=== PATIENT | female | born 1970 | race Caucasian/White ===

== ENCOUNTER 2023-03-04 09:25 | Emergency (ER) | payer OTHER, SELFPAY ==
[2023-03-04 09:35] VITALS: BP 138/80; PULSE 77; RESP 20; TEMP 37; O2SAT 95; BMI 39.4
--- NOTE | 2023-03-04 10:07 | EXP.UTC ---
Discharge Plan Disposition Patient Disposition: Home, Self-Care Condition: Good Prescriptions Prescriptions: No Action levothyroxine 125 mcg capsule 125 mcg PO DAILY rosuvastatin 20 mg tablet 20 mg PO DAILY metoprolol succinate 25 mg tablet extended release 24 hr 37.5 mg PO DAILY Referrals Follow up/Referrals: Kamaljit Wiggins DO [Staff Physician] - 03/05/23 11:15 am Rosamaria Mcmullen APRN [Primary Care Provider] - See instructions Activity Restrictions/Add. Instructions Additional Instructions/Restrictions: Soak area in warm water and epson salt to help clean the area Follow up tomorrow with Dr Wiggins as scheduled 11am Clinical Impressions Clinical Impression: Foreign body in forearm Qualifiers: Encounter type: initial encounter Laterality: left Qualified Code(s): S50.852A - Superficial foreign body of left forearm, initial encounter Stand Alone Forms Stand Alone Forms: Work/School Release Discharge ED Provider: Viki Jasso [facility] [place] General Stated complaint: WC 6/15, possible splinter in Lt arm Mode of Arrival: Ambulatory Source of Information: Patient Limitations: No Limitations Time Seen by Provider: 03/04/23 10:07 Description of Symptoms (Recalled from Triage Doc. by RN): PATIENT C/O SPLINTER TO LEFT FOREARM SINCE SATURDAY. SHE STATES SHE GOT THE SPLINTER AT WORK WHILE MOVING A WOODEN PALLETT HEENT Symptoms (Recalled from RN notes): No Resp Symptoms (Recalled from RN notes): No Skin Symptoms (Recalled from RN notes): Yes MS Symptoms (Recalled from RN notes): No Functional Status (Recalled from RN notes): WNL History of Present Illness Provider Complaint: Patient states that she has a splinter in her left fore arm since last from a pallet States that she felt it go in but has been unable to get it out States that she has tried several times Related Data Home Medications Medication Instructions Recorded Confirmed levothyroxine 125 mcg capsule 125 mcg PO DAILY Supplement 04/24/18 03/04/23 rosuvastatin 20 mg tablet 20 mg PO DAILY Cholesterol 04/24/18 03/04/23 metoprolol succinate 25 mg 37.5 mg PO DAILY Hypertension 03/04/23 03/04/23 tablet,extended release 24 hr Allergies Allergy/AdvReac Type Severity Reaction Status Date / Time codeine Allergy Verified 03/04/23 09:47 Worker's Comp Is this a Worker's Comp case?: No [facility] Disclaimer: The information contained in this section may have been updated after the patient was seen, as this information can be updated by other users. Medical History (Updated 03/04/23 @ 11:08 by Viki Jasso APRN) Anxiety Depression Hyperlipidemia Hypertension Migraine Thyroid disease Urinary tract infection Surgical History (Updated 03/04/23 @ 09:50 by Kasey Simmons RN) History of appendectomy History of cholecystectomy History of hysterectomy History of tubal ligation Social History Smoking Status: Never smoker alcohol intake: never current occupational status: employed Travel in the last 8 weeks: None ROS Obtained: Yes All systems reviewed & no additional complaints except as documented and Yes Systems reviewed as appropriate & no additional complaints except as documented ENT Ears, Nose, Mouth, and Throat: Reports system reviewed and no additional complaints, except as documented and Reports as per HPI Cardiovascular Cardiovascular: Reports system reviewed and no additional complaints, except as documented and Reports as per HPI Respiratory Respiratory: Reports system reviewed and no additional complaints, except as documented and Reports as per HPI Integumentary/Breasts Skin/Breast: Reports system reviewed and no additional complaints, except as documented and Reports as per HPI Comments: splinter in right forearm since last Physical Exam General General appearance: alert and in no apparent distress Respiratory Respiratory exam: Present normal lung sounds bilaterally; Absent respi
--- NOTE | 2023-03-04 10:56 | XR_ITS ---
FINAL REPORT CLINICAL HISTORY: SPLINTER IN LEFT FOREARM COMPARISON: None FINDINGS: 2 views of the left forearm were obtained. There is no acute fracture or dislocation. The joints are intact. There are no soft tissue abnormalities. No radiopaque foreign body identified. IMPRESSION: No acute process. No radiopaque foreign body. Reviewed, Interpreted and Dictated by Samm Cortez MD Transcribed by Dora Back Authenticated and [facility]
[2023-03-04 11:21] VITALS: BP 138/80; PULSE 77; RESP 20; TEMP 37; O2SAT 95
== END 2023-03-04 11:22 | disposition home or self-care (01) ==
PROVIDERS: Emergency Provider Nurse Practitioner; PCP Nurse Practitioner Family
DX: S50.852A Superficial foreign body of left forearm, initial encounter (principal); I10 Essential (primary) hypertension; E78.5 Hyperlipidemia, unspecified; E03.9 Hypothyroidism, unspecified; F41.9 Anxiety disorder, unspecified; F32.A Depression, unspecified; W45.8XXA Other foreign body or object entering through skin, initial encounter
CPT/HCPCS: 73090; 99204; 99212; G0463

== ENCOUNTER 2023-03-11 11:02 | Day surgery (SDC) | payer OTHER, SELFPAY ==
[2023-03-07 10:14] VITALS: BMI 40.6
[2023-03-11 11:48] VITALS: BP 140/77; PULSE 86; RESP 18; TEMP 36.1; O2SAT 97
[2023-03-11 14:44] VITALS: BP 128/83; PULSE 65; RESP 17; TEMP 36.1; O2SAT 98
[2023-03-11 14:55] VITALS: BP 128/83; PULSE 65; RESP 17; TEMP 36.1; O2SAT 98
--- NOTE | 2023-03-11 15:18 | EXP.OP.NOTE ---
Date of procedure: 03/11/23 Pre-op Diagnosis:: Foreign body left forearm Post-op Diagnosis:: Same Procedure performed:: Removal foreign body left forearm Surgeon:: Kamaljit Wiggins DO Anesthesia: local Estimated blood loss (mL): 5 Operative findings:: See dictation Operative note:: Patient identified preoperatively. Left forearm was marked with yes my initials. Then taken to the procedure room. Left forearm was prepped and draped sterile fashion. Once prepped and draped final operative timeout performed to identify proper patient procedure and extremity. Everyone involved the case agreed. No counter occasion beginning. Local anesthesia was infiltrated with lidocaine with epinephrine over the area of foreign body entry into the left forearm on the volar aspect. After adequate anesthesia was confirmed skin knife was used to make incision in this area. Careful blunt dissection was taken down with the scissors and hemostat. There is no visual aspect of foreign body. There is lots of thick and fatty tissue in this area which was excised and removed. Irrigation of the wounds performed. Digital palpation of this area was performed to confirm removal of foreign body. There is no evidence of foreign body present with moving the fingers. Visualized down to the fascial layer. Copious irrigation of wound performed skin closed with nylon stitch sterile dressing placed. Patient taken to stepdown. Was awake throughout the procedure. Condition: stable Disposition: PACU Complications:: None apparent
== END 2023-03-11 14:55 | disposition home or self-care (01) ==
PROVIDERS: PCP Plastic Surgery; Visit Provider Orthopaedic Surgery
PROC: (CPT 10120; principal; 2023-03-11 12:15)
DX: S51.842A Puncture wound with foreign body of left forearm, initial encounter (principal); X58.XXXA Exposure to other specified factors, initial encounter
CPT/HCPCS: 10120

== ENCOUNTER 2025-05-11 16:20 | Outpatient (CLI) | payer BC, SELFPAY ==
[2025-05-11 18:20] LABS: Cholesterol 174 mg/dl (140-200); HDL Cholesterol 48 mg/dl (40-60); Triglycerides 124 mg/dl (30-150)
[2025-05-11 18:40] LABS: Free T4 (Free Thyroxine) 1.67 ng/dl (0.78-2.19)
[2025-05-11 18:52] LABS: Thyroid Stimulating Hormone 2.30 uIU/mL (0.465-4.68)
[2025-05-11 19:09] LABS: Hepatitis C Ab Qual. W/ RFX NEGATIVE (Negative)
--- OUTSIDE RECORDS SUMMARY | 2025-05-12 13:11 | XMS_ITS | Encounter Summary ---
Author Organization [employer] ([place], [place], [place], [place]) Address [address] [place] [address] Care Team Providers Care Final Assembler Name Role Phone Unavailable Primary Care Provider Unavailabl e Encounter Details Date Type Department Care Team (Late st Contact Info) Description 12/29/2020 Transcribed Document [facility] [place] Family Medicine [address] [place] [address] ProviderAnju MD [address], [place] [id number] Social History Tobacco Use Types Packs/Day Years Used Date Smoking Tobacco: Never Assessed Comments Unknown Sex and Gender Information Value Date Recorded Sex Assigned at Female 03/13/2022 8:50 PM CDT Legal Sex Female 8:50 PM CDT Gender Identity Female 03/13/2022 8:50 PM CDT Sexual Orientation Not on file documented as of this encounter Miscellaneous Notes * Cerner Conversion Note - Anju Bradshaw MD - 12/29/2020 10:04 AM CDT [place] [id number] RICCO KAHN :1970 Visit Time:12/29/2020 What to do next Your Diagnosis Other tear of medial meniscus, current injury, right knee, initial encounter, Other tear of medial meniscus, current injury, right knee, initial encounter Instructions From Your Care Team Discharge Follow Up Instructions: F/U in office in 7 to 10 days or call office Follow-Up Appointments Follow Up with IBETH ZHENG MD-ORT When 01/06/2021 10:15 AM EDT Where: [address] [facility] [address] [place] [address]- Medications What How Much When Instructions Next Dose levothyroxine (Synthroid 125 mcg (0.125 mg) oral tablet) 1 Tablet(s) Oral Every Day metoprolol (Metoprolol Tartrate 25 mg oral tablet) 0.5 Tablet(s) Oral Every Day rosuvastatin (rosuvastatin 10 mg oral tablet) 1 Tablet(s) Oral Every Day Take your medications faithfully. Do NOT skip medication. Do NOT stop taking medications without the direction of a physician. Carry a list of your medications with you at all times, and take this medication list with you to your first follow up visit. Report any side effects. Avoid herbal remedies unless discussed with your physician. As part of your treatment plan, your physician may have prescribed a limited course of a controlled substance. This medication may be given to help people with moderate or severe pain or for other medical conditions, but there are risks involved with treatment. Common side effects may include nausea, constipation, drowsiness, sweating, itching, dry mouth, and rash. More serious side effects may include cognitive and motor impairment, like problems with thinking, concentrating, alertness, and movement (e.g. slowed reflexes), and driving and operating heavy machinery can be dangerous. It is important for you to talk to your physician if you have these side effects or questions. These controlled substances can produce physical dependence and be habit-forming if taken for an extended period of time, which means that the body has gotten used to them and may experience withdrawal symptoms if they are abruptly stopped. Withdrawal symptoms can include runny nose, sweating, goose bumps, diarrhea, abdominal cramping, rapid heartbeat, difficulty sleeping, and nervousness. Please dispose of unused and medications per pharmacy guidance. Education Materials Knee Arthroscopy, Care After This sheet gives you information about how to care for yourself after your procedure. Your health care provider may also give you more specific instructions. If you have problems or questions, contact your health care provider. What can I expect after the procedure? After the procedure, it is common to have: ??? Soreness. ??? Swelling. ??? Pain that can be relieved by taking pain medicine. Follow these instructions at home: Incision care ??? Follow instructions from your health care provider about how to take care of your incisions. Make sure you: ? Wash your hands with soap and water before you change your bandage (dressing). If soap and water are not available, use hand equipment application specialist. ? Change your dressing as told by your health care provider. ? Leave stitches (sutures), ministerio, skin glue, or adhesive strips in place. These skin closures may need to stay in place for 2 weeks or longer. If adhesive strip edges start to loosen and curl up, you may trim the loose edges. Do not remove adhesive strips completely unless your health care provider tells you to do that. ??? Check your incision areas every day for signs of infection. Check for: ? Redness. ? More swelling or pain. ? Fluid or blood. ? Warmth. ? Pus or a bad smell. Bathing ??? Do not take baths, swim, or use a hot tub until your health care provider approves. Ask your health care provider if you may take showers. You may only be allowed to take sponge baths. Activity ??? Do not use your knee to support your body weight until your health care provider says that you can. Follow weight-bearing restrictions as told. Use crutches or other devices to help you move around (assistive devices) as directed. ??? Ask your health care provider what activities are safe for you during recovery, and what activities you need to avoid. ??? If physical therapy was prescribed, do exercises as directed. Doing exercises may help improve knee movement and flexibility (range of motion). ??? Do not lift anything that is heavier than 10 lb (4.5 kg), or the limit that you are told, until your health care provider says that it is safe. Driving ??? Do not drive until your health care provider approves. You may be able to drive after 1???3 weeks. ??? Do not drive or use heavy machinery while taking prescription pain medicine. Managing pain, stiffness, and swelling ??? If directed, put ice on the injured area: ? Put ice in a plastic bag or use the icing device (cold therapy unit) that you were given. Follow instructions from your health care provider about how to use the icing device. ? Place a towel between your skin and the bag or between your skin and the icing device. ? Leave the ice on for 20 minutes, 2???3 times a day. ??? Move your toes often to avoid stiffness and to lessen swelling. ??? Raise (elevate) the injured area above the level of your heart while you are sitting or lying down. If you are taking blood thinners: ??? Before you take any medicines that contain aspirin or NSAIDs, talk with your health care provider. These medicines increase your risk for dangerous bleeding. ??? Take your medicine exactly as told, at the same time every day. ??? Avoid activities that could cause injury or bruising, and follow instructions about how to prevent falls. ??? Wear a medical alert bracelet or carry a card that lists what medicines you take. General instructions ??? Take esbc-phy-bnwqmwz and prescription medicines only as told by your health care provider. ??? If you are taking prescription pain medicine, take actions to prevent or treat constipation. Your health care provider may recommend that you: ? Drink enough fluid to keep your urine pale yellow. ? Eat foods that are high in fiber, such as fresh fruits and vegetables, whole grains, and beans. ? Limit foods that are high in fat and processed sugars, such as fried or sweet foods. ? Take an mqgh-ucj-gaslpwm or prescription medicines for constipation. ??? Do not use any products that contain nicotine or tobacco, such as cigarettes and e-cigarettes. These can delay incision or bone healing. If you need help quitting, ask your health care provider. ??? Wear compression stockings as told by your health care provider. These stockings help to prevent blood clots and reduce swelling in your legs. ??? Keep all follow-up visits as told by your health care provider. This is important. Contact a health care provider if you: ??? Have a fever. ??? Have severe pain. ??? Have redness around an incision. ??? Have more swelling. ??? Have fluid or blood coming from an incision. ??? Notice that an incision feels warm to the touch. ??? Notice pus or a bad smell coming from an incision. ??? Notice that an incision opens up. ??? Develop a rash. Get help right away if you: ??? Have difficulty breathing. ??? Have shortness of breath. ??? Have chest pain. ??? Develop pain in your lower leg or at the back of your knee. ??? Have numbness or tingling in your lower leg or your foot. Summary ??? Raise (elevate) the injured area above the level of your heart while you are sitting or lying down. ??? To help relieve pain and swelling, put ice on your leg for 20 minutes at a time, 2???3 times a day. ??? If you were prescribed a blood thinner, avoid activities that could cause injury or bruising, and follow instructions about how to prevent falls. ??? If physical therapy was prescribed, do exercises as directed. Doing exercises may help improve range of motion. This information is not intended to replace advice given to you by your health care provider. Make sure you discuss any questions you have with your health care provider. Document Revised: 08/15/2018 Document Reviewed: 07/16/2018 [employer] Patient Education ?? 2020 [employer]. General Anesthesia, Adult, Care After This sheet gives you information about how to care for yourself after your procedure. Your health care provider may also give you more specific instructions. If you have problems or questions, contact your health care provider. What can I expect after the procedure? After the procedure, the following side effects are common: ??? Pain or discomfort at the IV site. ??? Nausea. ??? Vomiting. ??? Sore throat. ??? Trouble concentrating. ??? Feeling cold or chills. ??? Weak or tired. ??? Sleepiness and fatigue. ??? Soreness and body aches. These side effects can affect parts of the body that were not involved in surgery. Follow these instructions at home: For at least 24 hours after the procedure: ??? Have a responsible adult stay with you. It is important to have someone help care for you until you are awake and alert. ??? Rest as needed. ??? Do not: ? Participate in activities in which you could fall or become injured. ? Drive. ? Use heavy machinery. ? Drink alcohol. ? Take sleeping pills or medicines that cause drowsiness. ? Make important decisions or sign legal documents. ? Take care of children on your own. Eating and drinking ??? Follow any instructions from your health care provider about eating or drinking restrictions. ??? When you feel hungry, start by eating small amounts of foods that are soft and easy to digest (bland), such as toast. Gradually return to your regular diet. ??? Drink enough fluid to keep your urine pale yellow. ??? If you vomit, rehydrate by drinking water, juice, or clear broth. General instructions ??? If you have sleep apnea, surgery and certain medicines can increase your risk for breathing problems. Follow instructions from your health care provider about wearing your sleep device: ? Anytime you are sleeping, including during daytime naps. ? While taking prescription pain medicines, sleeping medicines, or medicines that make you drowsy. ??? Return to your normal activities as told by your health care provider. Ask your health care provider what activities are safe for you. ??? Take lrrq-tgy-duenmla and prescription medicines only as told by your health care provider. ??? If you smoke, do not smoke without supervision. ??? Keep all follow-up visits as told by your health care provider. This is important. Contact a health care provider if: ??? You have nausea or vomiting that does not get better with medicine. ??? You cannot eat or drink without vomiting. ??? You have pain that does not get better with medicine. ??? You are unable to pass urine. ??? You develop a skin rash. ??? You have a fever. ??? You have redness around your IV site that gets worse. Get help right away if: ??? You have difficulty breathing. ??? You have chest pain. ??? You have blood in your urine or stool, or you vomit blood. Summary ??? After the procedure, it is common to have a sore throat or nausea. It is also common to feel tired. ??? Have a responsible adult stay with you for the first 24 hours after general anesthesia. It is important to have someone help care for you until you are awake and alert. ??? When you feel hungry, start by eating small amounts of foods that are soft and easy to digest (bland), such as toast. Gradually return to your regular diet. ??? Drink enough fluid to keep your urine pale yellow. ??? Return to your normal activities as told by your health care provider. Ask your health care provider what activities are safe for you. This information is not intended to replace advice given to you by your health care provider. Make sure you discuss any questions you have with your health care provider. Document Revised: 09/05/2018 Document Reviewed: 04/18/2018 [employer] Patient Education ?? 2020 [employer]. Emergency Awareness and Preventative Care STROKE is an EMERGENCY Every Minute Counts Act FAST and Check for these signs: FACE Does the face look uneven? ARM Does one arm drift down? SPEECH Does their speech sound strange? TIME Call at any sign of stroke Stroke Risk Factors Atrial Fibrillation (irregular heartbeat) Diabetes Family history of stroke Heart Disease Heavy alcohol use High Blood Pressure High Cholesterol Physical inactivity and obesity Smoking Cigarette Smoking The facts are clear, cigarette smoking will shorten your life. Smoking can cause many illnesses along the way. As a healthcare provider, we recommend that you stop smoking. Assistance with quitting is available by contacting 7-783-CHIE-NOW. This is a free resource providing counseling, support, and referral. Or you may contact your personal physician. National Suicide Prevention Lifeline: The National Suicide Prevention Lifeline is a national network of local crisis centers that provides free and confidential emotional support to people in suicidal crisis or emotional distress 24 hours a day, 7 days a week. Don't Wait! Stop a Heart Attack Before it Starts What is a heart attack? A heart attack is damage or to a part of the heart from severely decreased or lack of blood flow to the heart. Over time, arteries can become narrow from the buildup of fat and cholesterol, which is called plaque. The plaque can rupture causing a blood clot to form. When the blood clot forms, the artery can become severely narrowed or completely blocked, causing a heart attack. Heart attack is the leading cause of in the [place]. 85% of muscle damage occurs within the first 2 hours. Delay in the recognition of heart attack symptoms increases the chances of . Know the early symptoms of a heart attack: Nausea Feeling of fullness in chest Jaw Pain Pain that travels down one or both arms Fatigue/being tired Anxiety Back Pain Chest pressure, squeezing, or discomfort Shortness of breath Sweating, or a cold sweat Feeling of impending doom There are unusual signs of a heart attack, too! Women, the elderly, and diabetics may present with atypical symptoms: Fainting/dizziness Weakness Confusion Risk Factors for a Heart Attack Some heart disease risk factors, such as age and family history, cannot be changed. Others, like smoking and lack of exercise, can be changed. Smoking High Cholesterol High Blood Pressure Family History Obesity Age Gender (Males are at higher risk) Lack of Exercise Diabetes Diet Stress Excessive Alcohol Intake If you or someone you know is experiencing the signs and symptoms of a heart attack, DON???T DELAY. Call immediately and seek help. If someone collapses, perform CPR! Do not attempt to drive if you are having symptoms of heart attack. Hands-Only CPR Why Hands-Only CPR? Hands-Only CPR has been shown to be as effective as conventional CPR for cardiac arrests that occur outside of a hospital. Survival depends on immediately receiving CPR from someone nearby. How do you perform Hands-Only CPR? There are two easy steps: Call if you see a teen or adult collapse Push hard and fast in the center of the chest at a beat of 100 beats per minute. Save a life! 4 WAYS TO GET AHEAD OF SEPSIS SEPSIS is a MEDICAL EMERGENCY. Time matters! Infections put you and your family at risk for a life-threatening condition called sepsis. Sepsis is the body's extreme response to an infection. It is life-threatening, and without timely treatment, sepsis can rapidly lead to tissue damage, organ failure, and . Sepsis happens when an infection you already have-in your skin, lungs, urinary tract or somewhere else-triggers a chain reaction throughout your body. 1 PREVENT INFECTIONS Take good care of chronic conditions. Talk to your doctor about getting the recommended vaccines. 2 PRACTICE GOOD HYGIENE Wash your hands frequently. Keep cuts or open sores clean and covered until they are healed. 3 KNOW THE SYMPTOMS Confusion or disorientation Shortness of breath High heart rate Fever, shivering, or feeling very cold Extreme pain or discomfort Clammy or sweaty skin 4 ACT FAST Get medical care IMMEDIATELY if you suspect sepsis or if you have an infection that is not getting better or is getting worse. To learn more about sepsis and how to prevent infections, visit www.cdc.gov/sepsis. Test Results Laboratory or Other Results This Visit (last charted value for your 12/29/2020 visit) General Chemistry 12/29/2020 5:40 AM Glucose POC2: 110 mg/dL -- Normal range between ( 70 and 110 ) Patient Name:RICCO KAHN I have received this information and was given the opportunity to ask questions. Patient/Auto Machinist Name: Patient/Auto Machinist Signature: Relationship to Patient: Clinician/Hospital Auto Machinist Signature: Date: documented in this encounter Plan of Treatment Not on file documented as of this encounter Visit Diagnoses Not on filedocumented in this encounter
--- OUTSIDE RECORDS SUMMARY | 2025-05-12 13:11 | XMS_ITS | Encounter Summary ---
Author Organization [employer] ([place], [place], [place], [place]) Address [address] [place] [address] Care Team Providers Care Psychiatric Secretary Name Role Phone Unavailable Primary Care Provider Unavailabl e Encounter Details Date Type Department Care Team (Late st Contact Info) Description 12/29/2020 Transcribed Document [facility] [place] [facility] [place] [address] 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 Postoperative Diagnosis: Same. Procedure Performed: Right knee examination under anesthesia, arthroscopy, medial meniscal debridement, tricompartment chondroplasty, medial plica excision. Surgeon: Zana Reece???Yousif Ervin EBL: Minimal. Complications: None. Anesthesia: General. Drains/Tubes: None Specimen Sent to Pathology: None Procedure: After appropriate timeout and preoperative marking, the patient was placed in a supine position under general anesthesia. The knee was examined. There was full ROM and all ligaments were stable. Portals were preinjected. The knee was then prepped and draped free in the usual manner. Portals were established inferolateral and inferomedial. In the medial compartment, we identified an extensive area of grade 4 chondromalacia damage. We performed a chondroplasty on this. There was a degenerative tear of the posterior horn of the medial meniscus. We performed a meniscectomy on this back to a good stable rim. The medial tibial plateau was intact. In the notch the ACL and PCL were intact to visualization and probing. In the lateral compartment we found an area of grade 4 chondromalacia damage. We performed a chondroplasty on this. The lateral meniscus was intact to visualization and probing. he popliteal tendon and hiatus were intact. The lateral tibial plateau had grade 4 chondromalacia and we performed chondroplasty back to a stable surface. In the patellofemoral joint there was normal alignment. The retropatellar surface had grade 4 chondromalacia of the medial, central and lateral facets. We performed a chondroplasty on this. The femoral trochlea was involved with grade 4 chondromalacia. Chondroplasty was performed back to a stable surface. The suprapatellar pouch and both gutters were clear. In the medial gutter we found a thickened large plica. It impinged in the patellofemoral articulation. There was underlying chondromalacia on the medial femoral condyle. It was felt that this was probably symptomatic. The plica was therefore excised. Chondroplasty was performed. The knee was then thoroughly irrigated with sterile saline. Instruments were withdrawn. The wounds were closed with nylon. They were appropriately dressed. The patient tolerated the procedure well and was taken to the Recovery Room in stable condition. Ehsan Murphy MD Electronically signed by Estela [facility] Conversion Numberer And Wirer Cerner at 01/01/2023 7:03 PM CDT documented in this encounter Plan of Treatment Not on file documented as of this encounter Visit Diagnoses Not on filedocumented in this encounter
--- OUTSIDE RECORDS SUMMARY | 2025-05-12 13:11 | XMS_ITS | Encounter Summary ---
Author Organization [employer] ([place], [place], [place], [place]) Address [address] [place] [address] Care Team Providers Care Engine Cowling Installer Name Role Phone Unavailable Primary Care Provider Unavailabl e Encounter Details Date Type Department Care Team (Late st Contact Info) Description 12/29/2020 Transcribed Document [facility] [place] [address] [place] [address] ProviderAnju MD [address] [place], [place] [id number] Social History Tobacco Use Types Packs/Day Years Used Date Smoking Tobacco: Never Assessed Comments Unknown Sex and Gender Information Value Date Recorded Sex Assigned at Female 03/13/2022 8:50 PM CDT Legal Sex Female 8:50 PM CDT Gender Identity Female 03/13/2022 8:50 PM CDT Sexual Orientation Not on file documented as of this encounter Miscellaneous Notes * Cerner Conversion Note - Anju ProviderMD - 12/29/2020 6:56 AM CDT PAT Adult Entered On: 12/29/2020 7:01 EDT Performed On: 12/29/2020 6:56 EDT by JUSTYNA BARONE, RN Vital Measurements Temperature Source : Temporal artery scanning Temperature Mode : Fahrenheit Temperature, Fahrenheit : 97.8 Deg F Clinical Temperature, C : 36.6 Deg C Pulse Method : Non-Invasive BP Device Peripheral Pulse Rate : 69 bpm Respiratory Rate : 16 Breaths/Min Blood Pressure Location : Arm, left upper Blood Pressure Source : Non-Invasive BP Device Blood Pressure Position : Sitting Systolic Blood Pressure : 117 mmHg Diastolic Blood Pressure : 66 mmHg Oxygen Saturation : 97 % Oxygen Therapy Mode : Room air JUSTYNA BARONE RN - 12/29/2020 6:56 EDT Pain Assessment Pain Assessment : Initial assessment Pain Scale Goal : 3 Pain Scale Used : 0-10 Scale Location : Knee, right JUSTYNA BARONE RN - 12/29/2020 6:56 EDT Height and Weight, Clinical Dosing Height Source : Stated Height Entry Format : [place] Height, Feet : 5 ft(Converted to: 152 cm, 60 Inch) Height, Inches : 4 Inch(Converted to: 0 ft 4 Inch, 10.16 cm) Clinical Height : 162.56 cm Weight Source : Standing scale Weight Entry Format : [place] Clinical Dosing Weight : 112.73 kg Weight, Pounds : 248 lb Body Surface Area (BSA) : 2.15 m2 Body Mass Index : 42.7 kg/m2 (>HHI) [place] Body Weight : 54 kg JUSTYNA BARONE RN - 12/29/2020 6:56 EDT Health Histories Smoking Status : Former smoker, quit more than 30 days ago Smokeless Tobacco Status : Never JUSTYNA BARONE RN - 12/29/2020 6:56 EDT Social History (As Of: 12/29/2020 07:01:33 EDT) Alcohol: Alcohol Use History No. (Last Updated: 12/29/2020 06:58:10 EDT by JUSTYNA BARONE RN) Infectious Disease History Has the patient ever been tested for COVID-19? : Yes, Patient stated results Negative Where are the test results? : In EMR Results Date of COVID-19 test known? : Yes Date of COVID-19 Test : 12/27/2020 EDT Does patient have symptoms of COVID-19? : No COVID19 Screening : No Experiencing Infectious Disease Symptoms : No symptoms Physical contact outside [place] in the last 30 days : No Infectious Disease History : Chicken pox/Shingles Tuberculosis Symptoms : None JUSTYNA BARONE RN - 12/29/2020 6:56 EDT COVID19 PreProcedure Screening Is this an Emergent or Add on Procedure? : No Date PreProcedure COVID-19 test known? : Yes Date of PreProcedure COVID-19 : 12/27/2020 EDT Has patient been isolated since the test : No Exposed to COVID19 symptoms since test? : No JUSTYNA BARONE RN - 12/29/2020 6:56 EDT Anesthesia/Transfusion History Family History of Anesthesia Reaction : No prior transfusion(s) Transfusion History : Prior anesthesia without reaction Family History of Anesthesia Reaction : None JUSTYNA BARONE RN - 12/29/2020 6:56 EDT Functional Assessment Functional ADL Evaluation Index EBN Bathing : Independent (2) Dressing : Independent (2) Toileting : Independent (2) Transferring Bed or Chair : Independent (2) Continence : Independent (2) Feeding : Independent (2) JUSTYNA BARONE RN - 12/29/2020 6:56 EDT ADL Index Score : 12 JUSTYNA BARONE RN - 12/29/2020 6:56 EDT Advance Directive Patient has Advance Directive *Q : No, patient refuses Advance Directive information JUSTYNA BARONE RN - 12/29/2020 6:56 EDT Spiritual/Cultural Needs Any Spiritual/Cultural Needs or Requests : No JUSTYNA BARONE RN - 12/29/2020 6:56 EDT [place] Suicide Severity Rating Scale (C-SSRS) CSSRS Past Month Wish to be : No CSSRS Past Month Suicidal Thoughts : No CSSRS Lifetime Suicide Behavior : No Suicide Severity Rating Score : 0 Suicide Severity Rating : No Additional Care Required at this time JUSTYNA BARONE RN - 12/29/2020 6:56 EDT Psychosocial History Do You Have a History of the Following? : Anxiety Currently in Unsafe Situation : No JUSTYNA BARONE RN - 12/29/2020 6:56 EDT Teaching/Learning Assessment Barriers To Learning : None evident Individuals Taught : Patient JUSTYNA BARONE RN - 12/29/2020 6:56 EDT General Info Arrived From : Home Mode of Arrival on Unit : Ambulatory Legal Guardian : Unaccompanied Want Family/Rep/Phys Notified of Admit : No Emergency Contact #1 : Silvio Emergency Contact #1 Emergency Contact #1 Relationship : Emergency Contact #2 : . Emergency Contact #2 Phone Number : . Emergency Contact #2 Relationship : . Information Obtained From : Patient Primary Language : Persian Communication Barrier : None Staple Fiber Washer Needed : JUSTYNA Lepe RN - 12/29/2020 6:56 EDT Abhilash Scale Abhilash Sensory Perception : No impairment Abhilash Moisture : Rarely moist Abhilash Activity : Walks occasionally Abhilash Mobility : Slightly limited Abhilash Nutrition : Adequate Abhilash Friction and Shear : No apparent problem Abhilash Score : 20 JUSTYNA BARONE RN - 12/29/2020 6:56 EDT Sleep Apnea Risk Assmt BiPAP/CPAP Ordered for Home Use : Yes Hx of Obstructive Sleep Apnea Diagnosis : Yes BiPAP/CPAP Used at Home : No Reason BiPAP/CPAP Not Used at Home : need fitting/testing Age over 50 Years Old : Yes Gender Male : No JUSTYNA BARONE RN - 12/29/2020 6:56 EDT Pain Scale Intensity : 7 JUSTYNA BARONE RN - 12/29/2020 6:56 EDT Image 4 - Images currently included in the form version of this document have not been included in the text rendition version of the form. documented in this encounter Plan of Treatment Not on file documented as of this encounter Visit Diagnoses Not on filedocumented in this encounter
--- OUTSIDE RECORDS SUMMARY | 2025-05-12 13:11 | XMS_ITS | Clinical Summary ---
[facility] Organization [facility] Address [address] [place] [address] Care Team Providers Care Director Of Casino Name Role Phone Yoselin Salcido DO Primary Care Provider + Family History Medical History Relation Name Comments Breast cancer Paternal Aunt Great Aunt 50+ Relation Name Status Comments Paternal Aunt Great Aunt Alive Social History Tobacco Use Types Packs/Day Years Used Date Smoking Tobacco: Never Assessed Comments No Sex and Gender Information Value Date Recorded Sex Assigned at Not on file Legal Sex Female 3:53 PM EDT Gender Identity Not on file Sexual Orientation Not on file Plan of Treatment Health Maintenance Due Date Last Done Comments ANNUAL PHYSICAL 1970 Annual Gynecologic Pelvic an d Breast Exam 1970 HEPATITIS C SCREENING 1970 COLON CANCER SCREENING 5 YEA R SIGMOIDOSCOPY 2015 CT COLONOGRAPHY 2015 FECAL OCCULT BLOOD TEST 2015 FIT Testing (1 year) 2015 Pneumococcal Vaccine 50+ (1 of 1 - PCV) 2020 COVID-19 Vaccine (2023-2 5 season) 2024 02/15/2021, 01/18/2021 INFLUENZA VACCINE 06/16/2025 06/17/2024, , 07/08/2020, Additional history exists COLOGUARD 11/29/2025 11/29/2022 MAMMOGRAM 10/06/2026 10/06/2024, 09/18, 09/13/2023, Additional history exists COLONOSCOPY 11/29/2032 11/29/2022 COLORECTAL CANCER SCREENING 11/29/2032 TDAP/TD VACCINES (3 - Td or Tdap) 02/23/2034 024, 08/05/2020 ZOSTER VACCINE Completed 05/24/2023, 11/20/2022 Procedures Procedure Name Priority Date/Time Associated Diagnosis Comments MAMMO SCREENING DIGITAL TOMOSYNTHESIS BILATERAL W CAD Routine 10/06/2024 9:46 AM EST Encounter for screening mammogram for malignant neoplasm of breast from Last 3 Months or Most Recently Relevant to Health Maintenance Results * Mammo Screening Digital Tomosynthesis Bilateral With CAD (10/06/2024 9:46 AM EST) Anatomical Region Laterality Modality Breast N/A Mammography 10/10/2024 10:5 7 AM EST Impressions 10/10/2024 11:00 AM EST No mammographic findings suspicious for malignancy. RECOMMENDATION: Continue annual screening mammography. BI-RADS CATEGORY 1, NEGATIVE. CAD was utilized. The standard false-negative rate of mammography is between 10% and 25%. Complex patterns or increased breast density will markedly elevate the false-negative rate of mammography. A letter, in lay terminology, with the results of this exam will be mailed to the patient. This report was finalized on 10/10/2024 11:[address] Esther Umanzor MD. Narrative 10/10/2024 11:00 AM EST BILATERAL SCREENING MAMMOGRAM WITH TOMOSYNTHESIS: HISTORY: The patient has no personal history or significant family history of breast cancer and no focal breast complaints at the time of screening mammography. She has gained 14 pounds since her prior mammogram. TECHNIQUE: Bilateral CC and MLO low dose, full field digital mammographic images were obtained with tomosynthesis. COMPARISON: 10/15/2023, 09/13/2023, 2022, 07/31/2021, 07/22/2020, 06/08/2019, 04/28/2019, and 03/31/2018 FINDINGS: The breast tissue is heterogeneously dense, which may obscure small masses. The fibroglandular pattern is stable. There are no suspicious masses, worrisome calcifications, nonsurgical areas of architectural distortion, or other secondary signs of malignancy. Patricia Coronado DO IMG MAMMOGRAPHY ORDERA BLES Final Result from Last 3 Months or Most Recently Relevant to Health Maintenance Insurance [facility] PPO Member Subscriber Plan / Payer (Ef fective 2018-Present) Name:Viki Heath Steve Relation to Subscriber:Self Name:Viki Heath Payer ID:[id number] (NAIC) Type:Not on file Address: [facility] [id number] [place] [id number] Care Teams Director Of Casino Relationship Specialty Start Date End Date Yoselin Salcido DO [address] [place] [id number] PCP - General Family Medicine 10/06/24
--- OUTSIDE RECORDS SUMMARY | 2025-05-12 13:11 | XMS_ITS | Encounter Summary ---
Author Organization [employer] ([place], [place], [place], [place]) Address [address] [place] [address] Care Team Providers Care High School Coordinator Name Role Phone Unavailable Primary Care Provider Unavailabl e Encounter Details Date Type Department Care Team (Late st Contact Info) Description 12/29/2020 Transcribed Document [facility] [place] [facility] [place] [address] ProviderAnju MD [address] [place] [address] Social History Tobacco Use Types Packs/Day Years [...] Conversion Note - Anju ProviderMD - 12/29/2020 7:02 AM CDT Patient: RICCO SMALL Age: 50 years Sex: Female : 1970 Associated Diagnoses: None Author: ZANA ZHENG MD-ORT HISTORY AND PHYSICAL DATE: Patient: Ricco Heath Date of : 1970 Patient Number: [id number] History of Present Illness Ricco is here for her right knee. She has had gradually increasing pain. He then got much worse at [place] when she fell. She feels the pain on the medial side. It catches and pops. It has been having mechanical symptoms for about 10 years. She is given ibuprofen 600 which she takes up to 3 times a day and does seem to help much. She has not had knee injections. Current Medication ??? Ibuprofen 600 MG Oral Tablet take as directed 20 days, 0 refills ??? Liothyronine Sodium 5 MCG Oral Tablet take as directed 90 days, 0 refills ??? Lisinopril 2.5 MG Oral Tablet take as directed 90 days, 0 refills ??? Metoprolol Succinate ER 25 MG Oral Tablet Extended Release 24 Hour take as directed 90 days, 0 refills ??? Rosuvastatin Calcium 10 MG Oral Tablet take as directed 90 days, 0 refills ??? Rosuvastatin Calcium 20 MG Oral Tablet take as directed 90 days, 0 refills ??? SUMAtriptan Succinate 100 MG Oral Tablet take as directed 5 days, 0 refills ??? Synthroid 125 MCG Oral Tablet take as directed 90 days, 0 refills ??? Ubrelvy 50 MG Oral Tablet take as directed 30 days, 0 refills Past Medical/Surgical History Reported: Immunization History: Recent immunization for flu. No recent immunization for pneumococcal pneumonia. Diagnoses: Thyroid Disease. Diabetes mellitus. Arthritis Procedural: ??? History of Gallbladder Surgical: ??? Appendectomy ??? Hysterectomy ??? Back surgery Social History Not a current smoker. Current diet: No recent change in diet. Caffeine use: Caffeine use. Tobacco use: Non-smoker. Alcohol: Not using alcohol. Drug Use: Not using drugs. Habits: Exercising regularly. Allergies ??? No Known Allergies Family History Stroke / Seizures Diabetes mellitus Hypertension Rheumatoid arthritis Review Of Systems Systemic: Not feeling tired and no recent weight loss. Recent weight gain. Head: Headache. No sinus pain. Eyes: Vision problems. No Cataracts, no Glasses/Contacts, and no Glaucoma. Otolaryngeal: No hearing loss and no tinnitus. Cardiovascular: No chest pain or discomfort and no palpitations. Hypertension and High Cholesterol. Pulmonary: No daytime asthma symptoms and no chronic cough. No wheezing. Gastrointestinal: No heartburn and no abdominal pain. No Indigestion, no Acid Reflux, no Peptic Ulcer, no GI Stomach Bleed, and no Ulcers. Endocrine: Hot flashes. No muscle weakness, no Diabetes, no Hypothyroid, and no Hyperthyroid. Hematologic: No easy bleeding, no tendency for easy bruising, and no Anemia. Musculoskeletal: Arthritis and lower back pain. No soft tissue swelling. Pain localized to one or more joints. Neurological: Dizziness. No convulsions and no numbness. Psychological: Anxiety and emotional lability. No depression and no insomnia. Not crying for no reason. Skin: No dry skin. No Ulcers, no Scars, and no rash. Allergic and Immunologic: No complaint of seasonal allergic reaction. Physical Findings Height 64 in 48 - 78 Weight 245 lbs 98 - 183 Body Mass Index 42.1 kg/m2 Body Surface Area 2.13 m2 There is a right-sided antalgic gait. She has normal mood, affect and orientation. She has a well-groomed appearance. Heart and lung exam is deferred to anesthesia. Normal alignment. There is full extension and full flexion. Complete stability of the cruciate and collateral ligaments. No effusion. tenderness all along the medial joint line. No redness or heat. Skin is intact. Grossly normal motor and sensory function. Grossly normal vascular status. Tests MRI of the right knee shows a tear of the posterior horn medial meniscus. There is an effusion. Mild degenerative changes. Previous views of the right knee including a unicompartmental series are reviewed and shows no significant narrowing of the medial compartment which restores with a stress view and flexion lateral. Patellofemoral joint is intact as is the lateral compartment. Plan We explained to Ricco that she has had years of knee pain with a tender joint line and essentially normal radiographs are very little evidence of arthritis. MRI confirms medial meniscal tear. We explained to her the problem with the meniscal tear. We also discussed the presence of the arthritis. We discussed the likelihood that her knee would continue to hurt because of these 2 problems. There is a chance of helping the pain with an arthroscopy and medial meniscectomy. We would also proceed with intra-articular surgery such as chondroplasty and removal of loose body depending on the findings. Custom possibility of continuing to have pain following this and that future treatment would be based on findings at the time of arthroscopy. This may include more surgery. We also discussed risks which include but are not limited to bleeding, infection, swelling, blood clots and possible continuing pain. She understands. She wants to proceed. She is otherwise healthy good surgical candidate. We'll plan to do this under general anesthetic at the surgery center or hospital. She had no further questions. Zana Murphy MD documented in this encounter Plan of Treatment Not on file documented as of this encounter Visit Diagnoses Not on filedocumented in this encounter
--- OUTSIDE RECORDS SUMMARY | 2025-05-12 13:11 | XMS_ITS | Clinical Summary ---
Author Organization [employer] ([place], [place], [place], [place]) Address [address] [place] [address] Care Team Providers Care Ceo & Board Director Name Role Phone Unavailable Primary Care Provider Unavailabl e Social History Tobacco Use Types Packs/Day Years Used Date Smoking Tobacco: Never Assessed Comments Unknown Sex and Gender Information Value Date Recorded Sex Assigned at Female 03/13/2022 8:50 PM CDT Legal Sex Female 8:50 PM CDT Gender Identity Female 03/13/2022 8:50 PM CDT Sexual Orientation Not on file Plan of Treatment Not on file
--- OUTSIDE RECORDS SUMMARY | 2025-05-12 13:11 | XMS_ITS | Encounter Summary ---
Author Organization [employer] ([place], [place], [place], [place]) Address [address] [place] [address] Care Team Providers Care Forming And Assembling Supervisor Name Role Phone Unavailable Primary Care Provider Unavailabl e Encounter Details Date Type Department Care Team (Late st Contact Info) Description 12/29/2020 Transcribed Document [facility] [place] Family Medicine [address] [place] [address] ProviderAnju MD [address] [place], [place] [address] Social History Tobacco Use Types Packs/Day Years [...] Conversion Note - Anju ProviderMD - 12/29/2020 8:12 AM CDT [facility] Main OR PACU Summary Primary Physician: IBETH ZHENG MD-DOMINICK Finalized Date/Time: 12/29/20 09:34:07 Pt. Name: RICCO KAHN Steve /Sex: 1970 Female Med Rec #: [id number] Physician: IBETH ZHENG MD-DOMINICK Financial #: [id number] Pt. Type: O Room/Bed: [facility]/5 Admit/Disch: 12/29/20 05:10:00 - Institution: [facility] OR PACU Case Times Entry 1 In PACU I 12/29/20 08:47:00 Ready for PACU 12/29/20 09:27:00 Discharge Discharge from PACU 12/29/20 09:27:00 I Last Modified By: KRISTINA RODRIGUEZ 12/29/20 09:33:56 Finalized By: KRISTINA RODRIGUEZ Document Signatures Signed By: KRISTINA RODRIGUEZ 12/29/20 09:34 Electronically signed by [facility] Conversion Comic Artist Cerner at 01/01/2023 7:00 PM CDT documented in this encounter Plan of Treatment Not on file documented as of this encounter Visit Diagnoses Not on filedocumented in this encounter
--- OUTSIDE RECORDS SUMMARY | 2025-05-12 13:11 | XMS_ITS | Encounter Summary ---
Author Organization [employer] ([place], [place], [place], [place]) Address [address] [place] [address] Care Team Providers Care Engineering Director Name Role Phone Unavailable Primary Care Provider Unavailabl e Encounter Details Date Type Department Care Team (Late st Contact Info) Description 12/29/2020 Transcribed Document [facility] [place] Family Medicine [address] [place] [address] ProviderAnju MD [address] [place], [place] [address] Social History Tobacco Use Types Packs/Day Years [...] 12/29/2020 8:12 AM CDT [facility] Main OR PostOp Summary Primary Physician: IBETH ZHENG MD-DOMINICK Finalized Date/Time: 12/29/20 10:23:27 Pt. Name: RICCO KAHN Steve /Sex: 1970 Female Med Rec #: [id number] Physician: IBETH ZHENG MD-DOMINICK Financial #: [id number] Pt. Type: O Room/Bed: [facility]/5 Admit/Disch: 12/29/20 05:10:00 - Institution: [facility] [place] PostOp Case Times Entry 1 In PACU II 12/29/20 09:30:00 Ready for PACU II 12/29/20 10:15:00 Discharge Discharge from PACU 12/29/20 10:15:00 II Last Modified By: Cheryl Lassiter RN 12/29/20 10:23:17 Finalized By: Cheryl Lassiter RN Document Signatures Signed By: Cheryl Lassiter RN 12/29/20 10:23 Electronically signed by [facility] Conversion Aquatic Physiotherapist Cerner at 01/01/2023 7:00 PM CDT documented in this encounter Plan of Treatment Not on file documented as of this encounter Visit Diagnoses Not on filedocumented in this encounter
--- OUTSIDE RECORDS SUMMARY | 2025-05-12 13:11 | XMS_ITS | Encounter Summary ---
Author Organization [employer] ([place], [place], [place], [place]) Address [address] [place] [address] Care Team Providers Care Flight Engineer Name Role Phone Unavailable Primary Care Provider Unavailabl e Encounter Details Date Type Department Care Team (Late st Contact Info) Description 12/29/2020 Transcribed Document [facility] [place] Medicine [facility] [place] [address] ProviderAnju MD [address], [place] [address] Social History Tobacco Use Types Packs/Day Years [...] Note - Anju Bradshaw MD - 12/29/2020 9:56 AM CDT Patient Education Materials Follows: Knee Arthroscopy, Care After This sheet gives [...] and water are not available, use hand clinical informatics strategist. ? Change your dressing as told by [...] You may be able to drive after 1?3 weeks. ??? Do not drive or use [...] Leave the ice on for 20 minutes, 2?3 times a day. ??? Move your toes [...] medicines you take. General instructions ??? Take pdyy-cqs-evbdmnx and prescription medicines only as told by [...] fried or sweet foods. ? Take an hnas-kzw-gbkmsdb or prescription medicines for constipation. ??? Do [...] leg for 20 minutes at a time, 2?3 times a day. ??? If you were [...] provider. Document Revised: 08/15/2018 Document Reviewed: 07/16/2018 [employer] Patient Education ? 2020 [employer]ama. General Anesthesia, Adult, Care After This sheet [...] activities are safe for you. ??? Take mzzt-wgc-bcuqrwm and prescription medicines only as told by [...] provider. Document Revised: 09/05/2018 Document Reviewed: 04/18/2018 Elsevier Patient Education ? 2019 [employer] documented in this encounter Plan of Treatment Not on file documented as of this encounter Visit Diagnoses Not on filedocumented in this encounter
--- OUTSIDE RECORDS SUMMARY | 2025-05-12 13:11 | XMS_ITS | Encounter Summary ---
Author Organization [employer] ([place], [place], [place], [place]) Address [address] [place] [address] Care Team Providers Care Data Entry Analyst Name Role Phone Unavailable Primary Care Provider Unavailabl e Encounter Details Date Type Department Care Team (Late st Contact Info) Description 12/29/2020 Transcribed Document [facility] [place] Family Medicine [address] [place] [address] ProviderAnju MD [address], [place] [address] Social History Tobacco Use Types Packs/Day Years [...] 12/29/2020 8:12 AM CDT [facility] Main OR IntraOp Summary Primary Physician: IBETH ZHENG MD-ORT Finalized Date/Time: 12/29/20 08:50:21 Pt. Name: VIKI KAHN Steve /Sex: 1970 Female Med Rec #: [id number] Physician: IBETH ZHENG MD-ORT Financial #: [id number] Pt. Type: O Room/Bed: [facility]/ Admit/Disch: 12/29/20 05:10:00 - Institution: [facility] [place] IntraOp Case Attendance Entry 1 Entry 2 Entry 3 Case Attendee IBETH ZHENG MD-ORT DANIEL LOZANO, CARLOS RODRIGUEZ, RN JITTERBUG OPERATOR-ANS Role Performed Surgeon/Proceduralist, JITTERBUG OPERATOR/Nurse Tax Assistant Redipper, First First Time In 12/29/20 07:54:00 12/29/20 07:54:00 12/29/20 07:54:00 Time Out 12/29/20 08:48:00 12/29/20 08:48:00 12/29/20 08:48:00 Procedure Knee Arthroscopy Knee Arthroscopy Knee Arthroscopy Other Attendee Superficial Wound Closed By: Last Modified By: CARLOS RODRIGUEZ, RN CARLOS RODRIGUEZ, CARLOS QUISPE, JONY 12/29/20 08:46:26 12/29/20 08:46:26 12/29/20 08:46:26 Entry 4 Case Attendee Samson Mcnally, Pipe Testing Technician Role Performed Scrub, First Time In 12/29/20 07:54:00 Time Out 12/29/20 08:48:00 Procedure Knee Arthroscopy Other Attendee Superficial Wound Closed By: Last Modified By: CARLOS RODRIGUEZ, JONY 12/29/20 08:46:26 [facility] IntraOp Case Attendance Audit 12/29/20 08:46:26 Cover Seamer: [email or web address] Modifier: LONGGA 1 <+> Time In 1 <+> Time Out 1 <*> Procedure Knee Arthroscopy 2 <+> Time In 2 <+> Time Out 2 <*> Procedure Knee Arthroscopy 3 <+> Time In 3 <+> Time Out 3 <*> Procedure Knee Arthroscopy 4 <+> Time In 4 <+> Time Out 4 <*> Procedure Knee Arthroscopy 12/29/20 07:25:04 Cover Seamer: [email or web address] Modifier: LONGGA <+> 1 Procedure 2 <*> Procedure Knee Arthroscopy 3 <*> Procedure Knee Arthroscopy 4 <*> Procedure Knee Arthroscopy 12/29/20 07:21:30 Cover Seamer: LONGGA Modifier: LONGGA <+> 4 Case Attendee <+> 4 Role Performed <+> 4 Procedure [facility] IntraOp Case Times Entry 1 Patient In Room Time 12/29/20 07:54:00 Out Room Time 12/29/20 08:48:00 Anesthesia Start Time 12/29/20 07:54:00 Stop Time 12/29/20 08:48:00 Anesthesia Ready 12/29/20 07:54:00 Surgery / Procedure Times Start Time 12/29/20 08:12:00 Stop Time 12/29/20 08:42:00 Last Modified By: CARLOS RODRIGUEZ RN 12/29/20 08:46:25 [facility] IntraOp Case Times Audit 12/29/20 08:46:25 Cover Seamer: LONGGA Modifier: LONGGA <+> 1 Out Room Time <+> 1 Stop Time 12/29/20 08:44:26 Cover Seamer: LONGGA Modifier: LONGGA <+> 1 Stop Time 12/29/20 08:15:57 Cover Seamer: LONGGA Modifier: LONGGA <+> 1 Start Time [facility] IntraOp Communication Entry 1 Communication To Family/Significant other Comment PROCEDURE STARTING Communication By CARLOS RODRIGUEZ RN Date and Time 12/29/20 08:16:00 Last Modified By: CARLOS RODRIGUEZ RN 12/29/20 08:16:55 [facility] IntraOp Counts Verification Entry 1 Procedure Knee Arthroscopy Count Info Count Type Sponge, Sharps Counts Verification Baseline/pre-procedure Sequence Count Results Correct, surgeon notified Counts Performed By Count Performed By Samson Mcnally Scrub (Scrub) Tech Count Performed By CARLOS RODRIGUEZ RN (RN) Last Modified By: CARLOS RODRIGUEZ RN 12/29/20 07:23:56 [facility] IntraOp Counts Final Entry 1 Procedure Knee Arthroscopy Final Count Info Count Type Sponge, Sharps Counts Verification Skin Closure/end of Sequence procedure Count Results Correct, surgeon notified Counts Performed By Count Performed By Samson Mcnally Scrub (Scrub) Tech Count Performed By CARLOS RODRIGUEZ, RN (RN) Last Modified By: CARLOS RODRIGUEZ RN 12/29/20 08:19:11 [facility] IntraOp Delays Entry 1 Delay Reason Surgeon late - did not call Duration 24 Minute(s) Last Modified By: CARLOS RODRIGUEZ RN 12/29/20 08:17:41 [facility] IntraOp Delays Audit 12/29/20 08:17:41 Cover Seamer: LONGGA Modifier: LONGGA 1 <*> Duration 42 Minute(s) 12/29/20 08:16:38 Cover Seamer: LONGGA Modifier: LONGGA 1 <*> Duration 20 Minute(s) [facility] IntraOp Departure from OR Entry 1 Integumentary Assessment Integumentary WDL Assessment WDL Skin Description Dry (WDL with exeptions) Transfer/Handoff Transfer to PACU Phase I Handoff Method Bedside/Face to face Post-op Transport Stretcher/Gurney Via Patient Transport CARLOS RODRIGUEZ RN, Accompanied by DANIEL LOZANO CRNA-ANS Last Modified By: CARLOS RODRIGUEZ RN 12/29/20 08:23:45 [facility] IntraOp Dressing and Packing Entry 1 Type Dressing Location RIGHT KNEE Wound Dressing Item 4x4's, Yuniel, Webril Applied By IBETH ZHENG MD-ORT Last Modified By: CARLOS RODRIGUEZ RN 12/29/20 08:19:34 [facility] IntraOp Fire Risk Assessment Entry 1 Fire Info Surgical Site or 0- No Incision Above the Xyphoid Open O2 Source 0- No (Mask or Cannula) Available Ignition 1- Yes (ESU, Laser, Light Source) Fire Risk 1 Assessment Score Fire Score Fire Risk Yes Assessment Complete Fire Risk CARLOS RODRIGUEZ RN Assessment Verified By Fire Risk 12/29/20 07:24:00 Assessment Verified Date/Time Fire Risk High Risk Protocol Yes Implemented Standard Fire Yes Safety Precautions Followed Last Modified By: CARLOS RODRIGUEZ RN 12/29/20 07:24:03 [facility] IntraOp General Case Data Processing Mechanic 1 Case Information OR OR 05 S[facility] Case Level 1 Room Verified Yes Wound Class I - Clean Specialty Orthopedic Anesthesia Type General ASA Class 2 Diagnosis Preop Diagnosis MEDIAL MENISCAL TEAR, RIGHT KNEE Postop Same As Preop No Postop Diagnosis DICTATED BY Yousif Last Modified By: CARLOS RODRIGUEZ RN 12/29/20 08:18:55 [facility] IntraOp General Case Data Audit 12/29/20 08:18:55 Cover Seamer: MUNA Modifier: LONGGA <+> 1 ASA Class <+> 1 Anesthesia Type <+> 1 Postop Same As Preop <+> 1 Preop Diagnosis <+> 1 Postop Diagnosis <+> 1 Room Verified [facility] IntraOp Intraoperative Assessment Entry 1 Handoff Method Bedside/Face to face Valid History / Yes Physical in Chart Preoperative Yes Checklist Reviewed/Evaluated Allergies Reviewed Yes Patient is Latex No Sensitive Isolation Not applicable Precautions Noted Level of WDL Consciousness (WDL = Alert, Oriented to Person, Place, and Time) Skin Assessment Yes Verified Present Upon IVs Arrival to OR Last Modified By: CARLOS RODRIGUEZ RN 12/29/20 07:24:30 [facility] IntraOp Intraoperative Equipment Entry 1 Type Equipment Equipment Equipment Jax Suction System ID Number [id number] Setting HIGH Intraop Monitoring Electrocardiogram Three lead placement (ECG) Electrode Placement Blood Pressure Non-Invasive BP Device Source Antiembolic Devices Scopes Photo/Video Documentation Photo Yes Video Yes Intraop Equipment TOWER # Comment Last Modified By: CARLOS RODRIGUEZ RN 12/29/20 07:41:45 [facility] IntraOp Medication Admin Entry 1 Entry 2 Medication/Irrigant lidocaine 2% 20ml vial Marcaine 0.5% 30ml vial - [id number] - [id number] Combo Med List Time Administered Route of LOCAL LOCAL Administration Dose Dose 10 10 Unit of Measure ml Volume Administered By IBETH ZHENG MD-ORT IBETH ZHENG MD-ORT Procedure Irrigation Irrigant Volume In Irrigant Volume Out Last Modified By: CARLOS RODRIGUEZ RN LONGSWORTH, GARY, RN 12/29/20 07:42:27 12/29/20 07:42:27 [facility] IntraOp Patient Positioning Entry 1 Procedure Knee Arthroscopy Body Position Supine Left Arm Position Secured on padded arm board Right Arm Position Secured on padded arm board Left Leg Position Uncrossed, parallel Right Leg Position Held on field Feet Uncrossed Yes Pressure Points Yes Checked Positioning Devices Arm Board, Pillows, Safety Strap, Chest Device Position LATERAL POST AT THIGH ON RIGHT SIDE; DOES NOT DROP FOOT OF BED Positioned By CARLOS RODRIGUEZ RN, DANIEL LOZANO, EVER-ANS, IBETH ZHENG MD-ORT Position Verified Positioning Yes Verified by Anesthesia Positioning Yes Verified by Surgeon Last Modified By: CARLOS RODRIGUEZ RN 12/29/20 07:25:02 [facility] IntraOp Sign In Entry 1 Patient, Site, Yes Procedure Identified Surgical Consent Yes Confirmed Relevant Surgical Yes Documents Available Surgical Site Yes Marked by person performing procedure Anesthesia Machine Yes Check Completed Medication Checks Yes Completed Airway Hypothermia Risk No Warming Measures Yes Taken Last Modified By: CARLOS RODRIGUEZ RN 12/29/20 07:25:06 [facility] Intra Op Sign Out Entry 1 RN Confirmation Surgical Yes Procedure(s) Identified Instrument, Sponge Yes and Sharps Counts Correct/Documented Equipment Problems N/A Documented Specimen Labeled N/A Correctly Urinary Catheter N/A Documented in [employer]View [place] Patient Yes Recovery Concerns Reviewed with Anesthesia Provider, Surgeon and RN Safety Checklist Yes Elements Complete? RN Sign Out CARLOS RODRIGUEZ RN Signature RN Sign Out 12/29/20 08:44:00 Signature Date/Time Plan of Care Outcome - Fire Risk OUTCOME STATEMENT: Goal met Patient is free from injury related to surgical fire Plan of Care Outcome - Pt Positioning OUTCOME STATEMENT: Goal met Absence of signs and symptoms of positioning injury. Plan of Care Outcome - Skin Prep OUTCOME STATEMENT: Goal met Intraoperative care is consistent with measures to prevent infection Plan of Care Outcome - Xray/Images OUTCOME STATEMENT: N/A Absence of observable signs or symptoms of radiation injury Plan of Care Outcome - Counts OUTCOME STATEMENT: Goal met Absence of signs and symptoms of injury related to extraneous objects Last Modified By: CARLOS RODRIGUEZ RN 12/29/20 08:44:41 [facility] IntraOp Skin Prep Entry 1 Procedure Knee Arthroscopy Prescribed Yes Pre-Surgical Prep Completed Prep Area RIGHT LEG Intraop Prep Integumentary WDL Assessment WDL Prep Agents Alcohol, Chlorhexadine gluconate Prep by CARLOS RODRIGUEZ RN Hair Removal Methods No hair removal performed Last Modified By: CARLOS RODRIGUEZ RN 12/29/20 07:25:20 [facility] IntraOp Surgical Procedures Entry 1 Procedure Knee Arthroscopy Additional RIGHT KNEE ARTHROSCOPY Procedure WITH MEDIAL MENISCAL Description DEBRIDEMENT, TRICOMPARTMENT CHONDROPLASTY, MEDIAL PLICA EXCISION Primary Procedure Yes Primary Surgeon IBETH ZHENG MD-ORT Start 12/29/20 08:12:00 Stop 12/29/20 08:42:00 Anesthesia Type General Specialty Orthopedic Wound Class I - Clean Last Modified By: CARLOS RODRIGUEZ RN 12/29/20 08:42:41 [facility] IntraOp Surgical Procedures Audit 12/29/20 08:42:41 Cover Seamer: LONGGA Modifier: LONGGA 1 <*> Procedure Knee Arthroscopy 1 <+> Stop 1 <*> Additional Procedure Description RIGHT KNEE ARTHROSCOPY WITH MEDIAL MENISECTOMY 12/29/20 08:19:58 Cover Seamer: LONGGA Modifier: LONGGA <+> 1 Start [facility] IntraOp Temp Regulation Devices Entry 1 Temp Regulation Temperature Warm blankets Regulation Device Temperature Full body Regulation Site Temperature BLAKE, DANIEL, Regulation Device JITTERBUG OPERATOR-ANS Applied by Last Modified By: CARLOS RODRIGUEZ RN 12/29/20 07:25:52 [facility] IntraOp Time Out Entry 1 Procedure to be Knee Arthroscopy Performed Time Out Time Out Pause Time 12/29/20 08:11:00 All activity Yes suspended (unless life threatening emergency) Team Verbally Correct patient Confirms Information identity, Correct side and site are marked, Consent form is present and accurate, Agreement on the procedure to be done, Correct patient position, Relevant images/results properly labeled/appropriately displayed, Confirm antibiotics have been administered, Confirm the skin prep has dried, Confirm prosthesis/implant/devic e is present, Performed in location of procedure after prepped/draped, Performed before each procedure if multiple procedures Antibiotic Yes Prophylaxis Administered Or In Progress Within the Last 60 Minutes Beta Jam Yes Administered Venous N/A Thromboembolism Prophylaxis Required Anticipated Critical Events Surgeon None expected Anesthesia Provider Patient specific concerns Nursing Assures Sterility of instruments Essential Imaging Yes Labeled and Displayed Last Modified By: CARLOS RODRIGUEZ RN 12/29/20 08:24:27 Case Comments <None> Finalized By: CARLOS RODRIGUEZ, RN Document Signatures Signed By: CARLOS RODRIGUEZ RN 12/29/20 08:50 documented in this encounter Plan of Treatment Not on file documented as of this encounter Visit Diagnoses Not on filedocumented in this encounter
--- OUTSIDE RECORDS SUMMARY | 2025-05-12 13:11 | XMS_ITS | Referral Summary ---
Author Organization [employer] ([place], [place], [place], [place]) Address [address] [place] [address] Care Team Providers Care Capping Machine Operator Name Role Phone Unavailable Primary Care Provider [...]
--- OUTSIDE RECORDS SUMMARY | 2025-05-12 13:11 | XMS_ITS | Encounter Summary ---
Author Organization [employer] ([place], [place], [place], [place]) Address [address] [place] [address] Care Team Providers Care Glove Presser Name Role Phone Unavailable Primary Care Provider Unavailabl e Encounter Details Date Type Department Care Team (Late st Contact Info) Description 12/29/2020 Transcribed Document [facility] [place] [address] [place] [address] ProviderAnju MD [address] [place], [place] [address] Social History Tobacco Use Types Packs/Day Years [...] Conversion Note - Anju ProviderMD - 12/29/2020 7:30 AM CDT [facility] Main OR PreOp Summary Primary Physician: IBETH ZHENG MD-DOMINICK Finalized Date/Time: 12/29/20 08:13:42 Pt. Name: RICCO KAHN Steve /Sex: 1970 Female Med Rec #: [id number] Physician: IBETH ZHENG MD-DOMINICK Financial #: [id number] Pt. Type: O Room/Bed: [facility]/5 Admit/Disch: 12/29/20 05:10:00 - Institution: [facility] [place] PreOp Case Times Entry 1 In Preop 12/29/20 05:25:00 Ready for Holding n/a Room Patient Ready for 12/29/20 07:12:00 Surgery Patient Out of Preop 12/29/20 07:47:00 Patient Out of n/a Holding Room Last Modified By: Yun Mariee RN 12/29/20 08:13:39 [facility] PreOp Case Times Audit 12/29/20 08:13:39 Business Services Representative: GI Modifier: IRA <+> 1 Patient Out of Preop 12/29/20 07:13:44 Business Services Representative: GI Modifier: GI <+> 1 Patient Ready for Surgery Finalized By: Yun Mariee RN Document Signatures Signed By: Yun Mariee RN 12/29/20 08:13 documented in this encounter Plan of Treatment Not on file documented as of this encounter Visit Diagnoses Not on filedocumented in this encounter
--- OUTSIDE RECORDS SUMMARY | 2025-05-12 13:11 | XMS_ITS | Encounter Summary ---
Author Organization [employer] ([place], [place], [place], [place]) Address [address] [place] [address] Care Team Providers Care Blueprint Cutter Name Role Phone Unavailable Primary Care Provider Unavailabl e Encounter Details Date Type Department Care Team (Late st Contact Info) Description 03/29/[address] [facility] [place] [facility] [place] [address] ProviderAnju MD [address] [place] [address] Social History Tobacco Use Types Packs/Day Years Used Date Smoking Tobacco: Never Assessed Comments Unknown Sex and Gender Information Value Date Recorded Sex Assigned at Female 03/13/2022 8:50 PM CDT Legal Sex Female 8:50 PM CDT Gender Identity Female 03/13/2022 8:50 PM CDT Sexual Orientation Not on file documented as of this encounter Miscellaneous Notes * [employer] Conversion Note - Historical ProviderMD - 03/29/2021 11:34 AM CDT DATE OF SERVICE: 03/29/2021 SLEEP CONSULTATION HISTORY: Viki comes in with a history of obstructive sleep apnea. She has a sleep study that I have obtained and interpreted from May 2017 showing moderate sleep apnea with an AHI of 21. She states she tried CPAP a few days, gave it back, and did not follow up. She comes in now to start treatment. She states that she snores at night. She is tired all day and she naps occasionally. She will wake up several times through the night. Her Schaller score today is 11. She is off work now waiting for a knee replacement. Her surgery is on hold pending treatment of her sleep apnea. She has continuous snoring, wakes up with a dry mouth. She wakes up coughing and choking at times. She has a headache in the mornings. She get sleepy through the day. PAST MEDICAL HISTORY: Remarkable for anxiety, hypertension. She is planning a knee replacement at [facility]. Her sleep apnea history is as above. FAMILY MEDICAL HISTORY: Her mom, dad, and siblings all have diabetes. Her mother and father have hypertension, restless legs, and sleep apnea. REVIEW OF SYSTEMS: Patient questionnaire is remarkable for frequent urination, decreased libido, itching, headaches, memory loss, anxiety, and frequent thirst. SOCIAL HISTORY: She is a smoker, quit, smoking previously. She does not use alcohol or caffeine. 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 ALLERGIES: No allergies. MEDICATIONS: 1. Metoprolol. 2. Synthroid. 3. Levothyroxine. 4. Rosuvastatin. 5. Sumatriptan. PHYSICAL EXAMINATION: GENERAL: She is well developed, well nourished, in no distress. EYES: Reveal pupils equal, round. Sclerae and corneas clear. ENT: She has mask on. RESPIRATIONS: Normal rate and pattern. No labored breathing. EXTREMITIES: No edema. Gait symmetric. NEUROLOGIC: Alert and oriented. Mood and affect are appropriate. SKIN: No clubbing or cyanosis. VITAL SIGNS: Her height is 64 inches, weight 247, body mass index 43, neck 17. Respirations 16, oxygen saturation is 97, blood pressure 110/80, and heart rate 84. IMPRESSION: 1. Obstructive sleep apnea, moderate, diagnosis in 2017. Her home sleep study was reviewed in detail. She has accompanying sleep symptoms consistent with sleep apnea. I have obtained and interpreted her previous study. 2. Hypertension. Treatment of her sleep apnea may be helpful. She is on several medications for this. 3. Preoperative surgery, planned knee replacement. [facility] will not let her have her knee replacement until she is on CPAP. I have suggested that she get the CPAP and that she return to make sure that she is controlled on CPAP as well prior to her surgery. PLAN: I have written a prescription for auto CPAP at 4-16 with supplies. She will return next week. She wants to have surgery the end of this month, and I am not sure that will fit, but if she gets her device is able to use it and we can get some good data, we will try to make that work. She is adamant to get on with her surgery because of being off work and states that she cannot have without treating her sleep apnea. /[id number] Cheryl Carlisle MD PAC/AQ / PAC / MODL /[id number] CC: Dr. Katherine Edmond Electronically signed by Estela, [facility] [employer]version [employer] Specialist Jessica at 01/01/2023 6:52 PM CDT documented in this encounter Plan of Treatment Not on file documented as of this encounter Visit Diagnoses Not on filedocumented in this encounter
== END 2025-05-11 23:59 | disposition home or self-care (01) ==
LOC: LAB.DROPOF 05-12 13:05
PROVIDERS: PCP Internal Medicine; Visit Provider Internal Medicine
DX: E03.9 Hypothyroidism, unspecified (principal); E78.5 Hyperlipidemia, unspecified; Z13.29 Encounter for screening for other suspected endocrine disorder; Z13.220 Encounter for screening for lipoid disorders; Z11.59 Encounter for screening for other viral diseases; Z11.4 Encounter for screening for human immunodeficiency virus [HIV]
CPT/HCPCS: 80061; 84439; 84443; 86803; 87389